=== PATIENT | female | born 1945 | race Caucasian/White ===

== ENCOUNTER 2017-12-30 08:23 | Day surgery (SDC) | payer MEDICARE, BC ==
[2017-12-30] MEDS ORDERED: DIPHENHYDRAMINE HCL 50 MG/ML VIAL ONE (08:25)
[2017-12-30] MEDS ORDERED: NALOXONE HCL INJ/PF 0.4 MG/1 ML SDV ONE (08:26)
[2017-12-30] MEDS ORDERED: ONDANSETRON HCL INJ/PF 4 MG/2 ML SDV ONE (08:26)
[2017-12-30] MEDS ORDERED: MIDAZOLAM 2 MG/2 ML INJ ONE (08:26)
[2017-12-30] MEDS ORDERED: FLUMAZENIL INJ 0.5 MG/5 ML VIAL ONE (08:26)
[2017-12-30] MEDS ORDERED: EPINEPHRINE INJ 1 MG/10 ML DISP.SYRIN ONE (08:27)
[2017-12-30] MEDS ORDERED: GLUCAGON,HUMAN RECOMB 1 MG INJ ONE (08:27)
[2017-12-30] MEDS: MIDAZOLAM 2 MG/2 ML INJ ONE ×3 (09:02→09:16)
[2017-12-30] MEDS: FENTANYL CITRATE INJ/PF 100 MCG/2 ML AMPUL ONE ×3 (09:04→09:20)
--- NOTE | 2017-12-30 09:52 | Discharge Summary ---
Discharge Summary (SDC) - Discharge Final Diagnosis: 1. Scattered diverticulosis 2. Polyp of the transverse colon Date of Surgery: 12/30/17 Discharge Date: 12/30/17 Condition: Good Treatment or Instructions: [address] [address] POST ENDOSCOPY DISCHARGE INSTRUCTIONS 1. Diet: Start clear liquids that a regular diet as tolerated. 2. Resume all preoperative medications. All oral anticoagulants and aspirins can be resumed 24 hours after procedure. 3. If a polypectomy was performed some bleeding per rectum may occur. This should stop within 3 days. If not, please contact the office. 4. If you had a colonoscopy you may experience some bloating and delayed return of normal bowel function for several days, your regular bowel movement pattern should resume within a week. 5. Please contact [facility] at to make an appointment with Dr. Galvan for 1 to 3 weeks following procedure. 6. If you have any questions or concerns regarding your care,treatment plan or follow up, please contact our office. 7. Per clinical guidelines we recommend you undergo a repeat colonoscopy in 3 years. Referrals: ADRIAN GREENE PA-C [Primary Care Provider] - Discharge Diet: As Tolerated Discharge Activity: Activity As Tolerated Home Care Assistance: None Needed Report the Following to Your Physician Immediately: Shortness of Breath, Increase in Pain, Fever over 101 Degrees
--- NOTE | 2017-12-30 09:56 | Operative Report ---
Operative Report DATE OF SURGERY: 12/30/17 PREOPERATIVE DIAGNOSIS: Screening for colon cancer POSTOPERATIVE DIAGNOSIS: Same with sigmoid diverticulosis; transverse colon polyp. OPERATION: 1. Total colonoscopy to cecum. 2. Transverse colon polyp SURGEON: RUBEN JACOB ANESTHESIA: Moderate Sedation TISSUE REMOVED OR ALTERED: Polyp COMPLICATIONS: none ESTIMATED BLOOD LOSS: none INTRAOPERATIVE FINDINGS: see below PROCEDURE: Obtaining informed consent the patient was taken from the preoperative holding area to the main endoscopy suite where monitoring devices were attached to the patient. Plan and surgical timeout were conducted The patient was placed in the left lateral decubitus position with knees to chest. A perianal examination was performed. There was no visible or palpable anorectal pathology. Sphincter tone was felt to be normal. The flexible adult colonoscope was advanced through the anal rectal canal, all the way to the cecum. Visualization of the cecum was achieved and the ileocecal valve, the appendiceal orifice and transillumination of the anterior abdominal wall. The colon was somewhat redundant. This was an excellent study on the well-prepped bowel. The colonoscope was withdrawn slowly and methodically checked and the mucosa carefully. There was no evidence of tumor, stricture, bleeding; In the transverse colon was a small sessile polyp which was removed with the cold forceps device. Bleeding minimal. Specimen sent to pathology. There were minimal diverticulosis of the sigmoid the scope was slowly withdrawn through the anal rectal canal. Complete visualization of the rectum was achieved with photodocumentation. The scope was withdrawn to the patient's anus. The patient tolerated the procedure well and was taken to the recovery area in stable condition. Her surveillance guidelines , patient will be an appropriate candidate for follow-up colonoscopy in 3 years.
[2017-12-30 10:40] VITALS: BP 144/62
== END 2017-12-30 10:50 | disposition home or self-care (01) ==
LOC: END 08:23
PROVIDERS: ATTEND Surgery
DX: Z12.11 Encounter for screening for malignant neoplasm of colon (principal); D12.3 Benign neoplasm of transverse colon; K57.30 Diverticulosis of large intestine without perforation or abscess without bleeding; Z86.010 Personal history of colon polyps; M81.0 Age-related osteoporosis without current pathological fracture; E55.9 Vitamin D deficiency, unspecified; I47.1 Supraventricular tachycardia; E11.40 Type 2 diabetes mellitus with diabetic neuropathy, unspecified; E78.5 Hyperlipidemia, unspecified; D51.0 Vitamin B12 deficiency anemia due to intrinsic factor deficiency; L93.0 Discoid lupus erythematosus; E11.22 Type 2 diabetes mellitus with diabetic chronic kidney disease; I12.9 Hypertensive chronic kidney disease with stage 1 through stage 4 chronic kidney disease, or unspecified chronic kidney disease; N18.9 Chronic kidney disease, unspecified; Z85.3 Personal history of malignant neoplasm of breast; Z79.899 Other long term (current) drug therapy; Z79.01 Long term (current) use of anticoagulants
CPT/HCPCS: 45380; 88305 ×2; J2250; J3010; J0171; J1200; J1610; J2310; J2405; J3490

== ENCOUNTER 2019-06-09 15:05 | Emergency (ER) | payer MEDICARE, BC ==
[2019-06-09] MEDS ORDERED: ONDANSETRON 4 MG TAB.RAPDIS PO ONE (15:42)
--- NOTE | 2019-06-09 15:44 | ER Document Report ---
ED Medical Screen (RME) - General Chief Complaint: Flank Pain Stated Complaint: CONGESTION Time Seen by Provider: 06/09/19 15:39 Primary Care Provider: ADRIAN GREENE PA-C [Primary Care Provider] - Follow up as needed TRAVEL OUTSIDE OF THE [place] IN LAST 30 DAYS: No - HPI Notes: 06/09/19 15:42 Patient is a 74-year-old female with a history of hypertension and blood clots (her left shoulder and lower abdomen- on coumadin) who presents for 2 complaints. The first is nasal congestion/discharge and a cough for the past 2- 1/2 weeks. 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 Patient also complains of right flank pain that will radiate around into her abdomen that is been present for the past couple days and she did have nausea and vomiting today. She is otherwise able to urinate normally. She is having normal bowel movements. No fever. I have treated and performed a rapid initial assessment of this patient. A comprehensive ED assessment and evaluation of the patient, analysis of test results and completion of medical decision making process will be conducted by additional ED providers. PHYSICAL EXAMINATION: GENERAL: Well-appearing, well-nourished and in no acute distress. A&Ox4. Answers questions appropriately. Abdomen: Limited exam in triage, mild tenderness to the mid abdomen and mild right CVA tenderness. Lungs: grossly ctab. - Related Data Allergies/Adverse Reactions: No Known Allergies Allergy (Verified 06/09/19 15:35) Home Medications: allopurinol, losartan, propanolol, simvastatin, celecoxib, gabapentin, furosemide, ibandronate, jantoven, ropinirole, flonase, Past Medical History - Social History Chew tobacco use (# tins/day): No Frequency of alcohol use: None Drug Abuse: None - Past Medical History Cardiac Medical History: Reports: Hx Hypertension Denies: Hx Coronary Artery Disease, Hx Heart Attack Pulmonary Medical History: Reports: Hx Pneumonia - A LONG TIME AGO Denies: Hx Asthma, Hx Bronchitis - HAS HAD BRONCHITIS X2, Hx COPD Neurological Medical History: Denies: Hx Cerebrovascular Accident, Hx Seizures GI Medical History: Denies: Hx Hepatitis, Hx Hiatal Hernia, Hx Ulcer Musculoskeltal Medical History: Reports Hx Arthritis - OSTEOPOROSIS Infectious Medical History: Denies: Hx Hepatitis Past Surgical History: Reports: Hx Mastectomy - LT. Denies: Hx Hysterectomy, Hx Open Heart Surgery, Hx Pacemaker - Immunizations Hx Diphtheria, Pertussis, Tetanus Vaccination: Yes - UNSURE OF DATE Physical Exam - Vital signs Vitals: Temp Pulse Resp BP Pulse Ox 98.2 F 94 20 194/77 H 96 06/09/19 15:10 06/09/19 15:10 06/09/19 15:10 06/09/19 15:10 06/09/19 15:10 Course - Vital Signs Vital signs: Temp Pulse Resp BP Pulse Ox 98.2 F 94 20 194/77 H 96 06/09/19 15:10 06/09/19 15:10 06/09/19 15:10 06/09/19 15:10 06/09/19 15:10 Doctor's Discharge - Discharge Referrals: ADRIAN GREENE PA-C [Primary Care Provider] - Follow up as needed
[2019-06-09 16:18] LABS: ABSOLUTE BASOPHILS # (AUTO) 0.1 10^3/uL (0.0-0.2); ABSOLUTE EOSINOPHILS # (AUTO) 0.1 10^3/uL (0.0-0.6); ABSOLUTE LYMPHOCYTES (AUTO) 1.4 10^3/uL (0.5-4.7); ABSOLUTE MONOCYTES (AUTO) 1.2 10^3/uL (0.1-1.4); ABSOLUTE NEUT (AUTO) 15.2 10^3/uL (1.7-8.2); BASOPHILS % (AUTO) 0.4 % (0-2); EOSINOPHILS % (AUTO) 0.5 % (0-6); HEMOGLOBIN 12.2 g/dL (12.0-15.5); LYMPHOCYTES % (AUTO) 7.6 % (13-45); MEAN CORPUSCULAR HEMOGLOBIN 32.6 pg (27.0-33.4); MEAN CORPUSCULAR HGB CONC 33.7 g/dL (32.0-36.0); MEAN CORPUSCULAR VOLUME 97 fl (80-97); MONOCYTES % (AUTO) 6.9 % (3-13); PLATELET COUNT 282 10^3/uL (150-450); RED BLOOD COUNT 3.73 10^6/uL (3.72-5.28); RED CELL DISTRIBUTION WIDTH 13.3 % (11.5-14.0); TOTAL CELLS COUNTED % (AUTO) 100 %
[2019-06-09 16:19] LABS: SEGMENTED NEUTROPHILS % (AUTO) 84.6 % (42-78)
[2019-06-09 16:24] LABS: APPEARANCE,URINE CLEAR; BILIRUBIN,URINE NEGATIVE (NEGATIVE); COLOR,URINE YELLOW; GLUCOSE, URINE NEGATIVE (NEGATIVE); KETONES,URINE NEGATIVE (NEGATIVE); PROTEIN,URINE 30 mg/dL (NEGATIVE); URINE SPECIFIC GRAVITY 1.023; UROBILINOGEN,URINE NEGATIVE mg/dL (<2.0)
[2019-06-09 16:29] LABS: INTERNATIONAL RATION (INR) 2.06; PROTHROMBIN TIME 23.5 SEC (11.4-15.4)
--- NOTE | 2019-06-09 16:34 | RADIOLOGY REPORT (SQ) ---
EXAM DESCRIPTION: CHEST 2 VIEWS COMPLETED DATE/TIME: 06/09/2019 4:18 pm REASON FOR STUDY: cough COMPARISON: None. EXAM PARAMETERS: NUMBER OF VIEWS: two views TECHNIQUE: PA and lateral views of the chest were obtained. RADIATION DOSE: NA LIMITATIONS: none FINDINGS: LUNGS AND PLEURA: No consolidation, pleural effusion or pneumothorax. MEDIASTINUM AND HILAR STRUCTURES: No mediastinal or hilar contour abnormality. HEART AND VASCULAR STRUCTURES: The cardiac silhouette and pulmonary vasculature are within normal [place] its. BONES: Findings of DISH. HARDWARE: Surgical clips that project within the left axilla. OTHER: Suspected left mastectomy. IMPRESSION: No acute cardiopulmonary process. TECHNICAL DOCUMENTATION: JOB ID: [id number] [employer]- All Rights Reserved Reading location - IP/workstation name: [email or web address]
[2019-06-09 16:36] LABS: ALBUMIN 4.5 g/dL (3.5-5.0); ALKALINE PHOSPHATASE 96 U/L (38-126); ANION GAP 10 (5-19); ASPARTATE AMINO TRANSFERASE 21 U/L (14-36); BILIRUBIN,DIRECT 0.3 mg/dL (0.0-0.4); BILIRUBIN,TOTAL 0.5 mg/dL (0.2-1.3); BLOOD UREA NITROGEN 39 mg/dL (7-20); CALCIUM 10.7 mg/dL (8.4-10.2); CARBON DIOXIDE 26 mmol/L (22-30); CHLORIDE 102 mmol/L (98-107); GLUCOSE 118 mg/dL (75-110); POTASSIUM 4.6 mmol/L (3.6-5.0); TOTAL PROTEIN 7.5 g/dL (6.3-8.2)
[2019-06-09] MEDS ORDERED: METOCLOPRAMIDE HCL INJ/PF 10 MG/2 ML SDV IV ONE (17:07)
[2019-06-09] MEDS ORDERED: PROPRANOLOL HCL 20 MG TABLET PO ONE (17:13)
[2019-06-09] MEDS ORDERED: FENTANYL CITRATE INJ/PF 100 MCG/2 ML AMPUL IV ONE ×2 (18:16→20:31)
[2019-06-09] MEDS ORDERED: NORMAL SALINE 1000 ML 1,000 ML IV ONE (19:14)
--- NOTE | 2019-06-09 19:15 | RADIOLOGY REPORT (SQ) ---
EXAM DESCRIPTION: CT ABD/PELVIS NO ORAL OR IV COMPLETED DATE/TIME: 06/09/2019 6:56 pm REASON FOR STUDY: R flank pain COMPARISON: None. TECHNIQUE: CT scan of the abdomen and pelvis performed without intravenous or oral contrast. Images reviewed with lung, soft tissue, and bone windows. Reconstructed coronal and sagittal MPR images revi ewed. All images stored on PACS. All CT scanners at this facility use dose modulation, iterative reconstruction, and/or weight based d osing when appropriate to reduce radiation dose to as low as reasonably achievable (ALARA). [facility]: Dose Right [facility]: CareDose [facility]: Dose Right [facility]: Teradose 4D [facility]: Smart [employer] RADIATION DOSE: CT Rad equipment meets quality standard of care and radiation dose reduction techniq ues were employed. CTDIvol: 7.9 mGy. DLP: 382 mGy-cm.mGy. LIMITATIONS: None. FINDINGS: LOWER CHEST: Left mastectomy. NON-CONTRASTED LIVER, SPLEEN, ADRENALS: Evaluation limited by lack of IV contrast. No identified sign ificant masses. PANCREAS: No masses. No peripancreatic inflammatory changes. GALLBLADDER: No identified stones by CT criteria. No inflammatory changes to suggest cholecystitis. RIGHT KIDNEY AND URETER: No suspicious masses. Assessment limited by lack of IV contrast. No signif icant calcifications. No hydronephrosis or hydroureter. LEFT KIDNEY AND URETER: No suspicious masses. Assessment limited by lack of IV contrast. No signifi cant calcifications. No hydronephrosis or hydroureter. AORTA AND RETROPERITONEUM: No aneurysm. No retroperitoneal masses or adenopathy. BOWEL AND PERITONEAL CAVITY: Sigmoid diverticulosis. No obvious masses or inflammatory changes. No f ree fluid. APPENDIX: Not visualized. PELVIS, BLADDER, AND ABDOMINAL WALL:No abnormal masses. No free fluid. Bladder normal. BONES: No significant findings. OTHER: No other significant finding. IMPRESSION: Sigmoid diverticulosis. No evidence diverticulitis. COMMENT: Quality ID # [id number]: Final reports with documentation of one or more dose reduction techniques (e.g., Automated exposure control, adjustment of the mA and/or kV according to patient size, use of iterative reconstruction technique) TECHNICAL DOCUMENTATION: JOB ID: [id number] [employer]- All Rights Reserved Reading location - IP/workstation name: [email or web address]
[2019-06-09] MEDS ORDERED: METOPROLOL SUCCINATE 50 MG TAB.SR.24H PO ONE (20:30)
--- NOTE | 2019-06-09 21:28 | RADIOLOGY REPORT (SQ) ---
EXAM DESCRIPTION: US ABDOMEN LIMITED COMPLETED DATE/TME: 06/09/2019 20:07 CLINICAL HISTORY: 74 years, Female, right flank pain COMPARISON: None. TECHNIQUE: 56 images Limited abdomen LIMITATIONS: None. FINDINGS: The liver is heterogeneous and mildly hyperechoic. It is however of normal size and 13.7 cm. No intrahepatic or extrahepatic biliary ductal dilatation, common bile duct measuring under 4 mm. Gallbladder is nondistended without cholelithiasis or cholecystitis. The right kidney measures 10.4 cm. It is unremarkable in the visualized portion. Visualized midline structures are unremarkable. IMPRESSION: Medical hepatic disease, likely steatosis. The cause of the patient's right flank pain is not identified on this examination. copyright 2010 [employer]- All Rights Reserved
[2019-06-09 21:44] LABS: ABSOLUTE EOSINOPHILS # (AUTO) 0.1 10^3/uL (0.0-0.6); ABSOLUTE LYMPHOCYTES (AUTO) 1.1 10^3/uL (0.5-4.7); ABSOLUTE MONOCYTES (AUTO) 1.1 10^3/uL (0.1-1.4); ABSOLUTE NEUT (AUTO) 14.2 10^3/uL (1.7-8.2); BASOPHILS % (AUTO) 0.1 % (0-2); EOSINOPHILS % (AUTO) 0.6 % (0-6); HEMATOCRIT 35.3 % (36.0-47.0); HEMOGLOBIN 11.8 g/dL (12.0-15.5); LYMPHOCYTES % (AUTO) 6.8 % (13-45); MEAN CORPUSCULAR HEMOGLOBIN 32.5 pg (27.0-33.4); MEAN CORPUSCULAR HGB CONC 33.5 g/dL (32.0-36.0); MEAN CORPUSCULAR VOLUME 97 fl (80-97); MONOCYTES % (AUTO) 6.4 % (3-13); PLATELET COUNT 250 10^3/uL (150-450); RED BLOOD COUNT 3.64 10^6/uL (3.72-5.28); RED CELL DISTRIBUTION WIDTH 13.6 % (11.5-14.0); SEGMENTED NEUTROPHILS % (AUTO) 86.1 % (42-78); TOTAL CELLS COUNTED % (AUTO) 100 %; WHITE BLOOD COUNT 16.5 10^3/uL (4.0-10.5)
[2019-06-09 22:18] LABS: ALBUMIN 4.2 g/dL (3.5-5.0); ALKALINE PHOSPHATASE 80 U/L (38-126); ANION GAP 10 (5-19); ASPARTATE AMINO TRANSFERASE 23 U/L (14-36); BILIRUBIN,DIRECT 0.4 mg/dL (0.0-0.4); BILIRUBIN,TOTAL 0.5 mg/dL (0.2-1.3); BLOOD UREA NITROGEN 31 mg/dL (7-20); CALCIUM 9.5 mg/dL (8.4-10.2); CARBON DIOXIDE 27 mmol/L (22-30); CHLORIDE 99 mmol/L (98-107); GLUCOSE 170 mg/dL (75-110); TOTAL PROTEIN 7.1 g/dL (6.3-8.2)
[2019-06-09] MEDS ORDERED: HYDROCODONE/ACETAMINOPHEN 5-325 MG (6 TAB/ER DISP) PO PRN (22:59)
[2019-06-09] MEDS ORDERED: ONDANSETRON ODT 4 MG TAB (6 TAB/ER DISP) PO PRN (22:59)
--- NOTE | 2019-06-09 23:00 | ER Document Report ---
ED General - General Chief Complaint: Flank Pain Stated Complaint: CONGESTION Time Seen by Provider: 06/09/19 15:39 Primary Care Provider: ADRIAN GREENE PA-C [Primary Care Provider] - Follow up as needed Mode of Arrival: Ambulatory Information source: Patient Notes: Patient is a 74-year-old female with a history of hypertension and blood clots (her left shoulder and lower abdomen- on coumadin) who presents for 2 complaints. The first is nasal congestion/discharge and a cough for the past 2- 1/2 weeks. 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 Patient also complains of right flank pain that will radiate around into her abdomen that is been present for the past couple days and she did have nausea and vomiting today. She is otherwise able to urinate normally. She is having normal bowel movements. No fever. TRAVEL OUTSIDE OF THE [place] IN LAST 30 DAYS: No - Related Data Allergies/Adverse Reactions: No Known Allergies Allergy (Verified 06/09/19 15:35) Home Medications: allopurinol, losartan, propanolol, simvastatin, celecoxib, gabapentin, furosemide, ibandronate, jantoven, ropinirole, flonase, Past Medical History - General Information source: Patient - Social History Smoking Status: Never Smoker Chew tobacco use (# tins/day): No Frequency of alcohol use: None Drug Abuse: None Family History: Reviewed & Not Pertinent Patient has suicidal ideation: No Patient has homicidal ideation: No - Past Medical History Cardiac Medical History: Reports: Hx Hypertension Denies: Hx Coronary Artery Disease, Hx Heart Attack Pulmonary Medical History: Reports: Hx Pneumonia - A LONG TIME AGO Denies: Hx Asthma, Hx Bronchitis - HAS HAD BRONCHITIS X2, Hx COPD Neurological Medical History: Denies: Hx Cerebrovascular Accident, Hx Seizures GI Medical History: Denies: Hx Hepatitis, Hx Hiatal Hernia, Hx Ulcer Musculoskeletal Medical History: Reports Hx Arthritis - OSTEOPOROSIS Infectious Medical History: Denies: Hx Hepatitis Past Surgical History: Reports: Hx Mastectomy - LT. Denies: Hx Hysterectomy, Hx Open Heart Surgery, Hx Pacemaker - Immunizations Hx Diphtheria, Pertussis, Tetanus Vaccination: Yes - UNSURE OF DATE Hx Pneumococcal Vaccination: 02/21/17 Review of Systems - Review of Systems Constitutional: No symptoms reported EENT: No symptoms reported Cardiovascular: No symptoms reported Respiratory: No symptoms reported Gastrointestinal: Nausea, Vomiting Genitourinary: Flank pain Female Genitourinary: No symptoms reported Musculoskeletal: No symptoms reported Skin: No symptoms reported Hematologic/Lymphatic: No symptoms reported Neurological/Psychological: No symptoms reported Physical Exam - Vital signs Vitals: Temp Pulse Resp BP Pulse Ox 98.2 F 94 20 194/77 H 96 06/09/19 15:10 06/09/19 15:10 06/09/19 15:10 06/09/19 15:10 06/09/19 15:10 - Notes Notes: PHYSICAL EXAMINATION: GENERAL: Well-appearing, well-nourished and in no acute distress. HEAD: Atraumatic, normocephalic. EYES: Pupils equal round and reactive to light, extraocular movements intact, conjunctiva are normal. ENT: Nares patent, oropharynx clear without exudates. Moist mucous membranes. NECK: Normal range of motion, supple without lymphadenopathy LUNGS: Breath sounds clear to auscultation bilaterally and equal. No wheezes rales or rhonchi. HEART: Regular rate and rhythm without murmurs ABDOMEN: Soft, nondistended abdomen. Tenderness to palpation to the right lower quadrant. No guarding, no rebound. No masses appreciated. Female : No CVA tenderness Musculoskeletal: Normal range of motion, no pitting or edema. No cyanosis. Tenderness to palpation to the right lumbar paraspinous region. No vertebral tenderness, step-off or deformity. NEUROLOGICAL: Cranial nerves grossly intact. Normal speech, normal gait. Norm al sensory, motor exams PSYCH: Normal mood, normal affect. SKIN: Warm, Dry, normal turgor, no rashes or lesions noted. Course - Re-evaluation Re-evalutation: Patient appears well, nontoxic, alert and interactive. Her work-up today has been relatively benign. She initially did have an elevated white blood count which was concerning however upon further investigation patient reports recent prednisone use secondary to an upper respiratory infection. She appears well, she has been hypertensive, she does have a history of hypertension and we gave her a dose of her antihypertensives which she was due for. Imaging studies tod ay were negative as outlined below. Possible musculoskeletal strain due to recent coughing versus gastroenteritis. Case was discussed with attending physician, Dr. Moyer, no indication for further work-up at this time. Patient does feel better, she is has tolerated oral intake. Microbiology 06/09/19 16:25 Urine Culture - Final Clean Catch Midstream Mixed Urogenital [facility] 06/09/19 06/09/19 06/09/19 15:44 15:57 15:57 WBC 18.0 H RBC 3.73 Hgb 12.2 Hct 36.0 MCV 97 MCH 32.6 MCHC 33.7 RDW 13.3 Plt Count 282 Lymph % (Auto) 7.6 L [place] % (Auto) 6.9 Eos % (Auto) 0.5 Baso % (Auto) 0.4 Absolute Neuts (auto) 15.2 H Absolute Lymphs (auto) 1.4 Absolute Monos (auto) 1.2 Absolute Eos (auto) 0.1 Absolute Basos (auto) 0.1 Seg Neutrophils % 84.6 H PT INR Sodium 138.2 Potassium 4.6 Chloride 102 Carbon Dioxide 26 Anion Gap 10 BUN 39 H Creatinine 1.33 H Est GFR ( Amer) 47 L Est GFR (MDRD) Non-Af 39 L Glucose 118 H Calcium 10.7 H Total Bilirubin 0.5 Direct Bilirubin 0.3 Neonat Total Bilirubin Not Reportable Neonat Direct Bilirubin Not Reportable Neonat Indirect Bili Not Reportable AST 21 ALT 28 Alkaline Phosphatase 96 Total Protein 7.5 Albumin 4.5 Lipase 603.7 H Urine Color YELLOW Urine Appearance CLEAR Urine pH 5.0 Ur Specific [place] 1.023 Urine Protein 30 H Urine Glucose (UA) NEGATIVE Urine Ketones NEGATIVE Urine Blood NEGATIVE Urine Nitrite (Reflex) NEGATIVE Urine Bilirubin NEGATIVE Urine Urobilinogen NEGATIVE Leukocyte Esterase Rfl TRACE H Urine RBC (Auto) 1 U Hyaline Cast (Auto) 3 Urine WBC (Reflex) 1 Squamous Epi Cells Auto 2 Urine Mucus (Auto) RARE Urine Ascorbic Acid NEGATIVE 06/09/19 06/09/19 06/09/19 15:57 21:00 21:00 WBC 16.5 H RBC 3.64 L Hgb 11.8 L Hct 35.3 L MCV 97 MCH 32.5 MCHC 33.5 RDW 13.6 Plt Count 250 Lymph % (Auto) 6.8 L [place] % (Auto) 6.4 Eos % (Auto) 0.6 Baso % (Auto) 0.1 Absolute Neuts (auto) 14.2 H Absolute Lymphs (auto) 1.1 Absolute Monos (auto) 1.1 Absolute Eos (auto) 0.1 Absolute Basos (auto) 0.0 Seg Neutrophils % 86.1 H PT 23.5 H INR 2.06 Sodium 135.9 L Potassium 5.0 Chloride 99 Carbon Dioxide 27 Anion Gap 10 BUN 31 H Creatinine 1.20 Est GFR ( Amer) 53 L Est GFR (MDRD) Non-Af 44 L Glucose 170 H Calcium 9.5 Total Bilirubin 0.5 Direct Bilirubin 0.4 Neonat Total Bilirubin Not Reportable Neonat Direct Bilirubin Not Reportable Neonat Indirect Bili Not Reportable AST 23 ALT 28 Alkaline Phosphatase 80 Total Protein 7.1 Albumin 4.2 Lipase Urine Color Urine Appearance Urine pH Ur Specific [place] Urine Protein Urine Glucose (UA) Urine Ketones Urine Blood Urine Nitrite (Reflex) Urine Bilirubin Urine Urobilinogen Leukocyte Esterase Rfl Urine RBC (Auto) U Hyaline Cast (Auto) Urine WBC (Reflex) Squamous Epi Cells Auto Urine Mucus (Auto) Urine Ascorbic Acid Chest X-Ray 06/09/19 15:42 IMPRESSION: No acute cardiopulmonary process. Abdomen/Pelvis CT 06/09/19 18:16 IMPRESSION: Sigmoid diverticulosis. No evidence diverticulitis. Abdomen Ultrasound 06/09/19 20:07 IMPRESSION: Medical hepatic disease, likely steatosis. The cause of the patient's right flank pain is not identified on this examination. copyright 2011 [employer]- All Rights Reserved - Vital Signs Vital signs: Temp Pulse Resp BP Pulse Ox 98.8 F 81 16 191/75 H 99 06/09/19 21:01 06/09/19 21:01 06/09/19 23:01 06/09/19 23:01 06/09/19 23:01 - Laboratory Result Diagrams: 06/09/19 21:00 06/09/19 21:00 Laboratory results interpreted by me: 06/09/19 06/09/19 06/09/19 15:44 15:57 15:57 WBC 18.0 H RBC Hgb Hct Lymph % (Auto) 7.6 L Absolute Neuts (auto) 15.2 H Seg Neutrophils % 84.6 H PT Sodium BUN 39 H Creatinine 1.33 H Est GFR ( Amer) 47 L Est GFR (MDRD) Non-Af 39 L Glucose 118 H Calcium 10.7 H Lipase 603.7 H Urine Protein 30 H Leukocyte Esterase Rfl TRACE H 01/17/20 01/17/20 01/17/20 15:57 21:00 21:00 WBC 16.5 H RBC 3.64 L Hgb 11.8 L Hct 35.3 L Lymph % (Auto) 6.8 L Absolute Neuts (auto) 14.2 H Seg Neutrophils % 86.1 H PT 23.5 H Sodium 135.9 L BUN 31 H Creatinine Est GFR ( Amer) 53 L Est GFR (MDRD) Non-Af 44 L Glucose 170 H Calcium Lipase Urine Protein Leukocyte Esterase Rfl Discharge - Discharge Clinical Impression: Flank pain Abdominal pain Qualifiers: Abdominal location: right lower quadrant Qualified Code(s): R10.31 - Right lower quadrant pain Condition: Stable Disposition: HOME, SELF-CARE Additional Instructions: Fortunately we were unable to find an exact cause of your pain. We did not find any life-threatening conditions. Your blood work, urine and imaging studies were normal today. Your white blood count was slightly elevated however I believe this is secondary to the recent steroid use. Please call your doctor on Wednesday to schedule a follow-up appointment, let them know you are seen in the emergency department and we were unable to find a cause of your pain. Please continue to take the medications I have prescribed for your symptoms. Return to the emergency department if you worsen. Prescriptions: Hydrocodone/Acetaminophen [Hudson 5-325 mg Tablet] 1 tab PO Q6H #12 tablet Ondansetron [Zofran Odt 4 mg Tablet] 1 - 2 tab PO Q4H PRN #15 tab.rapdis PRN Reason: For Nausea/Vomiting Referrals: ADRIAN GREENE PA-C [Primary Care Provider] - Follow up as needed
[2019-06-09 23:09] VITALS: BP 191/75
== END 2019-06-09 23:24 | disposition home or self-care (01) ==
LOC: ER 15:05
DX: R10.9 Unspecified abdominal pain (principal); R10.31 Right lower quadrant pain; R09.81 Nasal congestion; R09.89 Other specified symptoms and signs involving the circulatory and respiratory systems; R05 Cough; R11.2 Nausea with vomiting, unspecified; I10 Essential (primary) hypertension; Z79.899 Other long term (current) drug therapy
CPT/HCPCS: 96376; 99284; 96361; 96374; 96375; 36415; 87086; 83690; 85025; 85610; 87070; 80053; 81001; 71046; 76705; 74176; A9270 ×5; J3010; J2765; J7030; J3490; S0119

== ENCOUNTER → 2020-01-22 | Outpatient (CLI) | payer MEDICARE, BC ==
--- NOTE | 2020-01-22 15:10 | RADIOLOGY REPORT (SQ) ---
EXAM DESCRIPTION: MRI RT LOWER JOINT WITHOUT IMAGES COMPLETED DATE/TIME: 01/22/2020 1:42 pm REASON FOR STUDY: M25.561 PAIN IN RIGHT KNEE M25.561 PAIN IN RIGHT KNEE COMPARISON: None. TECHNIQUE: Rightknee images acquired and stored on PACS. Multiplanar images include fat sensitive s equences as T1, water sensitive sequences as FST2 or STIR, cartilage sensitive sequences as FSPD, and gradient echo sequences. LIMITATIONS: None. FINDINGS: JOINT AND BURSAE: Trace fluid. No large effusion. BONE CORTEX AND MARROW: No alteration of signal to suggest marrow replacement. No worrisome bone lesi ons. No occult fracture. ACL: Intact. No degeneration or ganglion cyst. PCL: Intact. MCL: Intact. No periligamentous edema or fluid. LCL: Intact. No periligamentous edema or fluid. MEDIAL MENISCUS: Tear in the posterior meniscus root. Slight extrusion. LATERAL MENISCUS: No tears. No abnormal signal. MEDIAL COMPARTMENT: Chondral thinning. Subchondral edema in the medial aspect of the tibial plateau. No discrete lesions otherwise detected. LATERAL COMPARTMENT: Cartilage preserved. No bone bruises or reactive marrow edema. No osteophytes. PATELLA: Chondral thinning in the inferior patellar cartilage. No discrete full-thickness defects or reactive bone changes otherwise noted. EXTENSOR MECHANISM: Intact. Quadriceps and patella tendons normal. SOFT TISSUES: Septated complicated appearing presumed cystic mass along the distal posterolateral fem ur. Communication with the joint is likely but difficult to confirm. Lesion measures less than 3 cm craniocaudal. OTHER: No other significant finding. IMPRESSION: 1. Posterior root medial meniscus tear. 2. Chondral thinning throughout the medial compartment. Mild chondromalacia patella. 3. Complicated cyst is suspected along the distal femur above the level of the knee joint. Limited p ost IV contrast scanning may be helpful to exclude any solid features. TECHNICAL DOCUMENTATION: JOB ID: [id number]- All Rights Reserved Reading location - IP/workstation name: [email or web address]
== END ==
LOC: RAD 12:54
PROVIDERS: ATTEND Orthopaedic Surgery
DX: M25.561 Pain in right knee (principal)